=== PATIENT | female | born 1975 | race Caucasian/White ===

== ENCOUNTER 2016-12-17 13:17 | Emergency (ER) | payer MEDICAID ==
[2016-12-17 13:24] VITALS: TEMP 97.5; O2SAT 96
[2016-12-17] MEDS ORDERED: LET GEL TOPICAL 1 EA SYR TP ONE (13:55)
--- NOTE | 2016-12-17 14:09 | EDPHY ---
H & P Time Seen by Provider: 12/17/16 14:06 HPI/ROS: HPI: Ms Monroe is a 41 yrs, female who presents with Chief Complaint: cut finger 3 days ago Location: left index finger Quality: laceration Duration: 3 days ago Signs and Symptoms: No redness, no warmth, no drainage, no bleeding, no radiation, no weakness Timing: sudden, gradually improving Severity: moderate Context: Patient was using kitchen knife and cut herself on trying to open up a plastic bag 3 days ago on her left index finger. She has washed it daily with soap and water. Her last tetanus booster was in 2012 per patient. No history of diabetes. Right hand dominant. Modifying Factors: Comment: ROS: Eyes: No blurred vision Respiratory: No shortness of breath, no cough Cardiovascular: No chest pain Gastrointestinal: No nausea, no vomiting no diarrhea Genitourinary: No dysuria Extremities: No myalgias Neurologic: No weakness, no numbness Skin: No rashes Hematologic: No bruising, no bleeding MEDICAL/SURGICAL HISTORY: Generally healthy. No prior history of surgeries. Social History: Denies tobacco use. Smoking Status: Heavy smoker Physical Exam: CONSTITUTIONAL: adult middle aged white female, awake and alert, moderate distress EXTREMITIES: 2/2 pulses, no deformities, no clubbing, no cyanosis or edema. left index finger 1/8 cm vertical superficial laceration; no erythema/warmth/ drainage. no active bleeding. finger FROM, light touch sensation intact. NEUROLOGICAL: no focal neuro deficits. GCS 15. SKIN: Warm and dry, no erythema. no rash. Good capillary refill. Constitutional: Initial Vital Signs Temperature (C) 36.4 C 12/17/16 13:20 Heart Rate 105 H 12/17/16 13:20 Respiratory Rate 18 12/17/16 13:20 Blood Pressure 141/92 H 12/17/16 13:20 O2 Sat (%) 96 12/17/16 13:20 Allergies/Adverse Reactions: No Known Allergies Allergy (Unverified 12/17/16 13:24) Home Medications: Medication Instructions Recorded Adderall 10 MG (*) 12/17/16 Klonopin 12/17/16 Naproxen 12/17/16 Percocet 5-325 mg Tablet 12/17/16 Medical Decision Making ED Course/Re-evaluation: Wound care provided. Small superficial laceration. wound occurred > 24 hours ago. No signs of cellulitis or abscess formation. Wound was cleaned with mild soap and water, let topical gel was applied, and then bacitracin with a clean sterile dressing. Tetanus up-to-date. Continue continue daily wound care is provided via written and verbal instructions until wound fully healed. - Data Points Medications Given: Discontinued Medications Tetracaine/Epinephrine/Lidocaine (Let Gel Topical) 1 ea TP EDNOW ONE Stop: 12/17/16 13:56 Last Admin: 12/17/16 14:08 Dose: 1 ea Departure - Departure Disposition: Home, Routine, Self-Care Clinical Impression: Abrasion of left index finger, initial encounter Condition: Good Instructions: Abrasion (ED) Referrals: NONE *PRIMARY CARE P,. [Primary Care Provider] - As per Instructions
[2016-12-17 14:59] VITALS: BP 120/79; PULSE 82; RESP 16
== END 2016-12-17 14:55 | disposition home or self-care (01) ==
DX: S60.411A Abrasion of left index finger, initial encounter (principal); F17.200 Nicotine dependence, unspecified, uncomplicated; W26.0XXA Contact with knife, initial encounter